=== PATIENT | female | born 1985 | race Caucasian/White ===

== ENCOUNTER 2017-06-15 23:19 | Emergency (ER) | payer OTHER ==
[~2017-06-15] VITALS: Ht 165.1 cm; Wt 151.7 kg
[~2017-06-15 23:19] MED LIST: BENTYL10 MG PO; BENTYL20 MG PO; CELEXA10 MG PO; KLONOPIN0.5 M1 PO; OMEPRAZOLE20 M2 PO; PERCOCET 5/31 TABLET PO; PROZAC20 MG PO; TYLENOL EXTRA500 MG PO; VENTOLIN HFA18 GM IH; VITAMIN E400 UNIT PO; ZOFRAN ODT8 MG PO; ZYRTEC10 M3 PO
[2017-06-16 01:01] LABS: HEMATOCRIT 41.6 % (36.0-46.0); MCH 25.5 PG (29.0-34.0); MCHC 31.5 G/DL (30.0-36.0); MCV 80.9 FL (83-99); MEAN PLAT.VOLUME 10.3 uM^3 (9.5-12.4); PLATELET COUNT 283 K/uL (156-360); RBC DIS.WIDTH-CV 14.6 % (11.8-14.6); RED BLOOD COUNT 5.14 M/uL (3.80-5.20); WHITE BLOOD COUNT 15.6 K/uL (4.1-10.2)
[2017-06-16 01:10] LABS: ADD MIUA? YES; BILIRUBIN NEGATIVE; BLOOD NEGATIVE; COLOR YELLOW ((YELLOW)); GLUCOSE (STRIP) NEGATIVE; KETONES NEGATIVE; LEUKOCYTES NEGATIVE; NITRITE NEGATIVE; PROTEIN (STRIP) NEGATIVE; SPECIFIC GRAVITY 1.017 (1.000-1.030); UROBILINOGEN 0.2 MG/DL (0.2-1.0)
[2017-06-16 01:23] LABS: CHLORIDE 102 mEq/L (99-109); POTASSIUM 3.9 mEq/L (3.7-5.4); SODIUM 137 mEq/L (136-147)
[2017-06-16 01:25] LABS: GLUCOSE 81 mg/dL (70-99)
[2017-06-16 01:26] LABS: ANION GAP 12 MEQ/L (2-14)
[2017-06-16 01:26] LABS: BACTERIA NONE SEEN /HPF; EPITHELIAL CELLS 1+ /HPF; MUCUS NONE SEEN /LPF; RED BLOOD CELLS 0-5 /HPF (0-5); UCUL ADDED? NO; WHITE BLOOD CELLS 0-5 /HPF (0-5)
[2017-06-16 01:27] LABS: TOTAL BILIRUBIN 0.3 mg/dL (0.0-1.0)
[2017-06-16 01:28] LABS: ALKALINE PHOSPHATASE 110 IU/L (3-129)
[2017-06-16 01:29] LABS: GFR ESTIMATE (CALCULATED) > 59 mL/min/
[2017-06-16 01:30] LABS: UREA NITROGEN (BUN) 10 mg/dL (9-23)
[2017-06-16 01:32] LABS: LIPASE 21 U/L (1.0-51.0)
[2017-06-16 01:39] LABS: QUANTITATIVE HCG < 4.0 MIU/ML
[2017-06-16] MEDS ORDERED: PERCOCET 5/31 TABLET PO (03:25)
[2017-06-16] MEDS ORDERED: ZOFRAN8 MG PO (03:25)
[2017-06-16 03:42] VITALS: BP 146/86
== END 2017-06-16 03:44 | disposition home or self-care (01) ==
LOC: EME 23:19
PROVIDERS: Emergency Medicine
DX: R10.11 Right upper quadrant pain (principal); K82.8 Other specified diseases of gallbladder; R11.2 Nausea with vomiting, unspecified; F17.200 Nicotine dependence, unspecified, uncomplicated
CPT/HCPCS: 74177; 76705; 80053; 81003; 83690; 84702; 85027; 99281; 99284; J2270; J2405; J7030

== ENCOUNTER 2017-07-27 08:10 | Day surgery (SDC) | payer OTHER ==
[~2017-07-27] VITALS: Ht 165.1 cm; Wt 149.5 kg
[~2017-07-27 08:10] MED LIST changes: +PROMETHAZINE HC25 M1 PO; +ZOFRAN8 MG PO; +ZOLOFT50 MG PO
[2017-07-27 09:18] VITALS: BP 157/95
[2017-07-27] MEDS ORDERED: PERCOCET 5/31 TABLET PO (11:53)
[2017-07-27 13:30] VITALS: BP 163/79
[2017-07-27 14:29] VITALS: BP 135/73
[2017-08-01 09:39] LABS: INTERNAL CONTROL VALID? YES
== END 2017-07-27 14:40 | disposition home or self-care (01) ==
LOC: SDC 08:10
PROVIDERS: Surgery
PROC: 0FT44ZZ Resection of Gallbladder, Percutaneous Endoscopic Approach (ICD-10-PCS; principal; 2017-07-27)
DX: K80.10 Calculus of gallbladder with chronic cholecystitis without obstruction (principal); E66.01 Morbid (severe) obesity due to excess calories; Z68.43 Body mass index [BMI] 50.0-59.9, adult; F17.210 Nicotine dependence, cigarettes, uncomplicated; R16.0 Hepatomegaly, not elsewhere classified; F41.8 Other specified anxiety disorders; K21.9 Gastro-esophageal reflux disease without esophagitis; Z81.8 Family history of other mental and behavioral disorders; Z82.5 Family history of asthma and other chronic lower respiratory diseases; Z82.49 Family history of ischemic heart disease and other diseases of the circulatory system; Z83.79 Family history of other diseases of the digestive system; Z80.9 Family history of malignant neoplasm, unspecified
CPT/HCPCS: 84703; 88304; J0330; J0690; J1100; J1170; J1885; J2250; J2405; J2710; J2765; J3010